=== PATIENT | male | born 1940 | race Caucasian/White ===

== ENCOUNTER 2017-03-19 08:47 | Inpatient (IN) | payer MEDICARE, OTHER ==
[~2017-03-19] VITALS: Ht 188 cm; Wt 86.4 kg
[~2017-03-19 08:47] MED LIST: ALBU8.5H5 IH; AMIO200T46 PO; CALC-176 PO; CARSR60 PO; CITA10TA84 PO; CYAN100 PO; LORA0.5T PO; METO-429 PO; OMEG100011 PO; OMEP20CA16 PO; RIVA15TA PO; SYMB80120 INH
[2017-03-19] MEDS ORDERED: ALBUTEROL 0.5% (NEB) 2.5 MG/0.5 ML AMP INH STA (08:52)
[2017-03-19] MEDS ORDERED: IPRATROPIUM (NEB) 0.5 MG/2.5 ML AMP INH STA (08:52)
[2017-03-19] MEDS ORDERED: METHYLPREDNISOLONE 125 MG INJ IV STA (08:52)
[2017-03-19 08:54] VITALS: Ht 188 cm; Wt 86.4 kg
[2017-03-19 09:03] LABS: ADD SCAN DIFF NO
--- NOTE | 2017-03-19 09:03 | ERA ---
ER Documentation Chief Complaint Date/Time DATE: 03/19/17 TIME: 09:01 Chief Complaint sob x today ROS All systems reviewed and are negative except as per history of present illness. Medications Home Meds Reported Medications Tiotropium [place]* (Spiriva*) 18 Mcg Cap.w.dev, 1 CAP INHALATION DAILY, #30 CAP 03/19/17 Simvastatin* (Zocor*) 10 Mg Tablet, 10 MG PO QHS, #30 TAB 03/19/17 Fluocinonide* (Fluocinonide* Oint) 0.05%-60 Gm Oint..gm., 1 APPLIC TOP BID, EA 03/19/17 Furosemide* (Lasix*) 20 Mg Tablet, 20 MG PO DAILY, TAB 03/19/17 Hydroxyzine Hcl* (Hydroxyzine Hcl*) 10 Mg Tablet, 10 MG PO QHS Y for SLEEP, #30 TAB MAY TAKE UP TO 5 TABLETS AT BEDTIME DIRECTED NEEDED 03/19/17 Ciclopirox (CICLODAN) 6.6 Ml Solution, 6.6 ML TP DAILY TO AFFECTED NAILS REMOVE WITH ALCOHOL EVERY 7 DAYS 03/19/17 Budesonide-Formoterol Fumarate* (Symbicort*) 160-4.5 Hfa.aer.ad, 2 PUFF INHALATION BID, #1 EACH 03/19/17 Atenolol* (Atenolol*) 100 Mg Tablet, 100 MG PO DAILY, #30 TAB 03/19/17 Apixaban* (Eliquis*) 5 Mg Tablet, 5 MG PO BID, TAB 03/19/17 Albuterol Sulfate* (Albuterol Sulfate* HFA) 8.5 Gm Hfa.aer.ad, 2 PUFF IH Q4H Y for WHEEZING AND SOB, EA 12/24/14 Omeprazole* (Omeprazole*) 20 Mg Capsule.dr, 20 MG PO DAILY, CAP 12/24/14 Cyanocobalamin* (Vitamin B12*) 100 Mcg Tab, 100 MCG PO DAILY, TAB 12/24/14 Discontinued Reported Medications Budesonide-Formoterol Fumarate* (Symbicort*) 80-4.5 Inha, 1 PUFF INH BID, INH 12/24/14 Citalopram Hydrobromide* (Citalopram Hydrobromide*) 10 Mg Tablet, 10 MG PO DAILY , TAB 12/24/14 Lorazepam* (Lorazepam*) 0.5 Mg Tablet, 0.5 MG PO HS Y for ANXIETY, TAB 12/24/14 [place]-3 Fatty Acids/Fish Oil* (Fish Oil *) 1,000 Mg Capsule, 1000 MG PO DAILY, CAP 12/24/14 Calcium Cmb 2-Mag Cmb 12-Vit D3 (Calcium 500) 1 Each Tablet, 1 TAB PO DAILY, TAB 12/24/14 Discontinued Scripts Diltiazem Hcl* (Cardizem SR*) 60 Mg Capsr, 60 MG PO BID, #60 3 Refills Prov:JOHNSON MATOS 12/28/14 Rivaroxaban* (Xarelto*) 15 Mg Tablet, 15 MG PO WITH DINNER, #30 3 Refills Prov:JOHNSON MATOS 12/26/14 Metoprolol Tartrate* (Lopressor*) 50 Mg Tab, 50 MG PO BID, #60 TAB 3 Refills Prov:SHAWNAJOHNSON 12/26/14 Amiodarone Hcl* (Cordarone*) 200 Mg Tab, 200 MG PO DAILY, #60 TAB 3 Refills Prov:JOHNSON MATOS 12/26/14 Allergies Allergies: Coded Allergies: No Known Allergy (Unverified , 03/19/17) PMhx/Soc History of Surgery: Yes (reattach mallelous ,archiles tendon, hernia repair x2 , reconstruced face) Anesthesia Reaction: No Hx Neurological Disorder: No Hx Respiratory Disorders: Yes (COPD) Hx Cardiac Disorders: No Hx Psychiatric Problems: Yes (anxiety attack) Hx Alcohol Use: No Hx Substance Use: No Hx Tobacco Use: Yes (1/2 pack/ day) Smoking Status: Current every day smoker Physical Exam Vitals Vital Signs Date Time Temp Pulse Resp B/P Pulse Ox O2 Delivery O2 Flow Rate FiO2 03/19/17 12:42 97.6 111 15 127/77 100 Nasal Cannula 2.0 03/19/17 11:00 135 18 145/90 100 Nasal Cannula 2.0 03/19/17 09:33 128 18 97 21 03/19/17 09:12 109 20 104/69 100 Mask 10.0 03/19/17 09:10 Nasal Cannula 2 03/19/17 08:58 Nasal Cannula 2.0 03/19/17 08:54 98.6 169 22 169/112 100 Physical Exam Const: [] Head: Atraumatic Eyes: Normal Conjunctiva ENT: Normal External Ears, Nose and Mouth. Neck: Full range of motion..~ No meningismus. Resp: Clear to auscultation bilaterally Cardio: Regular rate and rhythm, no murmurs Abd: Soft, non tender, non distended. Normal bowel sounds Skin: No petechiae or rashes Back: No midline or flank tenderness Ext: No cyanosis, or edema Neur: Awake and alert Psych: Normal Mood and Affect Result Diagram: 03/19/17 0900 03/19/17 0900 Results 24 hrs Laboratory Tests Test 03/19/17 09:00 03/19/17 10:00 White Blood Count 10.010^3/ul Red Blood Count 4.5110^6/ul Hemoglobin 16.3g/dl Hematocrit 47.1% Mean Corpuscular Volume 104.4fl Mean Corpuscular Hemoglobin 36.1pg Mean Corpuscular Hemoglobin Concent 34.6g/dl Red Cell Distribution Width 15.9% Platelet Count 58999^3/UL Mean Platelet Volume 10.1fl Neutrophils % 58.4% Lymphocytes % 28.1% Monocytes % 10.4% Eosinophils % 2.2% Basophils % 0.4% Nucleated Red Blood Cells % 0.0/100WBC Neutrophils # 5.910^3/ul Lymphocytes # 2.810^3/ul Monocytes # 1.010^3/ul Eosinophils # 0.210^3/ul Basophils # 0.010^3/ul Nucleated Red Blood Cells # 0.010^3/ul Sodium Level 134mmol/L Potassium Level 3.6mmol/L Chloride Level 96mmol/L Carbon Dioxide Level 23mmol/L Anion Gap 19 Blood Urea Nitrogen 15mg/dl Creatinine 1.05mg/dl Glucose Level 124mg/dl Calcium Level 10.2mg/dl Total Bilirubin 2.0mg/dl Direct Bilirubin 0.00mg/dl Indirect Bilirubin 2.0mg/dl Aspartate Amino Transf (AST/SGOT) 45IU/L Alanine Aminotransferase (ALT/SGPT) 53IU/L Alkaline Phosphatase 132IU/L Troponin I 0.020ng/ml Total Protein 8.1g/dl Albumin 4.3g/dl Globulin 3.80g/dl Albumin/Globulin Ratio 1.13 Thyroid Stimulating Hormone (TSH) 6.420MIU/L Magnesium Level 1.1mg/dl Current Medications Medications (Trade) Dose Ordered Sig/Mya Route PRN Reason Start Time Stop Time Status Last Admin Dose Admin Albuterol (Proventil 0.5% (Neb)) 15 mg ONCE STAT INH 03/19/17 08:52 03/19/17 08:56 DC 03/19/17 09:10 Ipratropium [place] (Atrovent 0.02% (Neb)) 1 mg ONCE STAT INH 03/19/17 08:52 03/19/17 08:56 DC 03/19/17 09:10 Methylprednisolone Sodium Succinate (Solu-Medrol) 125 mg ONCE STAT IV 03/19/17 08:52 03/19/17 08:56 DC 03/19/17 09:11 Diltiazem HCl (Cardizem Iv) 20 mg ONCE ONCE IV 03/19/17 09:30 03/19/17 09:31 DC 03/19/17 09:11 Diltiazem HCl 20 mg 20 mg ONCE ONCE IV 03/19/17 10:30 03/19/17 10:31 DC 03/19/17 10:31 Diltiazem HCl (Cardizem-D5W 125 Mg/125 ml Drip) 125 ml @ 5 mls/hr TITRATE IV 03/19/17 11:00 03/19/17 11:11 Ondansetron HCl (Zofran Inj) 4 mg ER BRIDGE PRN IV NAUSEA AND/OR VOMITING 03/19/17 12:00 03/20/17 11:59 Acetaminophen (Tylenol Tab) 650 mg ER BRIDGE PRN PO MILD PAIN/FEVER 03/19/17 12:00 03/20/17 11:59 RHYTHM STRIP INTERPRETATION: Time: 10:00. Post Cardizem, atrial fibrillation ventricular rate down to 105 but again michelle to 140. Indication: Tachycardia. EKG: TIME: 09:00. Atrial fibrillation with RVR at a rate of 169. Occasional PVCs. No acute ST segment elevation or depression. EP Interpretation: Abnormal EKG. IMAGING: PROCEDURE: XR Chest. CLINICAL INDICATION: Asthma exacerbation. TECHNIQUE: PA and Lateral views of the chest were obtained. COMPARISON: Chest x-ray 09/14/2015. FINDINGS: The soft tissues are normal. There are degenerative osteophytes in the thoracic and upper lumbar spine. The heart is enlarged. The cardiomediastinal silhouette and hilar structures are normal. The pulmonary vasculature is normal. There are faster calcifications in the aortic arch. There is pleural scarring adjacent to the right diaphragm. The left diaphragm is mildly elevated. No acute infiltrate is identified. There is reticular scarring in the right lower lobe with pulmonary hyperinflation. The costophrenic angles are normal. There are tubing artifacts obscuring portions of the right upper lobe. This represents a limitation of the study. Monitoring electrodes are draped across the chest. IMPRESSION: 1. Cardiomegaly. 2. COPD. 3. Atherosclerosis and ectasia of the thoracic aorta. 4. Increased density in the medial aspect of the right upper lobe may be the result of atelectasis. Evaluation in this area is limited by superimposed tubing artifacts. RPTAT:AAJJ Physician Que Date Time Electronically viewed and signed by Physician Que on 03/19/2017 09:59 JM/ Procedures/MDM DOCUMENTS REVIEWED: ED nurse[, EMS, [facility] care, Prior ED, Prior records, Dialysis, Clinic notes, Physician referral] PROCEDURES: [] ED COURSE: [] REEXAMINATION/REEVALUATION: Time:[] MEDICAL DECISION MAKING: [] Counseled [patient and family] regarding diagnosis, diagnostic results and plan for admission. CALLS/CONSULTS: Time[Dr. Marika [], Recommends []. PATIENT CARE TRANSITIONED: Time: []Dr. []. Departure Diagnosis: Primary Impression: Atrial fibrillation with rapid ventricular response Additional Impressions: COPD exacerbation Contusion of left knee Qualified Code: S80.02XA - Contusion of left knee, initial encounter Essential hypertension Nicotine abuse Condition: Serious ROSALIO MCNEIL MD March 19, 2017 09:03
[2017-03-19 09:11] LABS: BASOPHILS % 0.4 % (0.0-2.0); EOSINOPHILS # 0.2 10^3/ul (0.0-0.5); EOSINOPHILS % 2.2 % (0.0-7.0); HEMATOCRIT 47.1 % (42.0-52.0); HEMOGLOBIN 16.3 g/dl (14.0-18.0); LYMPHOCYTES # 2.8 10^3/ul (0.8-2.9); LYMPHOCYTES % 28.1 % (15.0-51.0); MEAN CORPUSCULAR HEMOGLOBIN 36.1 pg (29.0-33.0); MEAN CORPUSCULAR HGB CONC 34.6 g/dl (32.0-37.0); MEAN CORPUSCULAR VOLUME 104.4 fl (82.0-101.0); MEAN PLATELET VOLUME 10.1 fl (7.4-10.4); MONOCYTES % 10.4 % (0.0-11.0); NEUTROPHIL # 5.9 10^3/ul (1.6-7.5); NEUTROPHILS % 58.4 % (39.0-77.0); PLATELET COUNT 244 10^3/UL (140-415); RED BLOOD COUNT 4.51 10^6/ul (4.70-6.10); RED CELL DISTRIBUTION WIDTH 15.9 % (11.5-14.5)
[2017-03-19] MEDS ORDERED: DILTIAZEM 25 MG INJ IV ONE ×2 (09:30→10:30)
--- NOTE | 2017-03-19 09:51 | RADRPT ---
PROCEDURE: Left knee x-ray CLINICAL INDICATION: Status post fall. TECHNIQUE: AP, lateral, sunrise and oblique views of the knee were obtained. COMPARISON: None FINDINGS: There is chondrocalcinosis involving the medial lateral menisci. There is a joint space effusion. There is an enthesiophyte at the insertion site of the quadriceps tendon to the patella. There is a spur off of the lateral femoral condyle. There is a spur off the lateral tibial condyle. IMPRESSION: 1. Chondrocalcinosis with osteoarthritis involving the left knee. The joint space effusion is note d. RPTAT:AAJJ Physician Que Date Time Electronically viewed and signed by Physician Que on 03/19/2017 09:51 BLAS/
[2017-03-19 09:56] LABS: CALCIUM 10.2 mg/dl (8.4-10.2); CREATININE 1.05 mg/dl (0.61-1.24); POTASSIUM 3.6 mmol/L (3.5-5.1); TOTAL PROTEIN 8.1 g/dl (6.1-8.1)
--- NOTE | 2017-03-19 09:59 | RADRPT ---
PROCEDURE: XR Chest. CLINICAL INDICATION: Asthma exacerbation. TECHNIQUE: PA and Lateral views of the chest were obtained. COMPARISON: Chest x-ray 09/14/2015. FINDINGS: The soft tissues are normal. There are degenerative osteophytes in the thoracic and upper lumbar sp ine. The heart is enlarged. The cardiomediastinal silhouette and hilar structures are normal. The pulmonary vasculature is normal. There are faster calcifications in the aortic arch. There is pleura l scarring adjacent to the right diaphragm. The left diaphragm is mildly elevated. No acute infilt rate is identified. There is reticular scarring in the right lower lobe with pulmonary hyperinflati on. The costophrenic angles are normal. There are tubing artifacts obscuring portions of the right upper lobe. This represents a limitation of the study. Monitoring electrodes are draped across th e chest. IMPRESSION: 1. Cardiomegaly. 2. COPD. 3. Atherosclerosis and ectasia of the thoracic aorta. 4. Increased density in the medial aspect of the right upper lobe may be the result of atelectasis. Evaluation in this area is limited by superimposed tubing artifacts. RPTAT:AAJJ Physician Que Date Time Electronically viewed and signed by Physician Que on 03/19/2017 09:59 BLAS/
[2017-03-19 10:08] LABS: TROPONIN-I 0.02 ng/ml (0.00-0.12)
[2017-03-19 10:42] LABS: ALBUMIN 4.3 g/dl (3.3-4.9); ALBUMIN/GLOBULIN RATIO 1.13
[2017-03-19] MEDS ORDERED: DILTIAZEM-D5W 125MG/125ML DRIP 125 ML IV SCH (11:00)
[2017-03-19] MEDS ORDERED: APIX5TAB PO (11:19)
[2017-03-19] MEDS ORDERED: ATEN100T PO (11:19)
[2017-03-19] MEDS ORDERED: BUDE6HFA INHALATION (11:20)
[2017-03-19] MEDS ORDERED: CICL6.6S8 TP (11:22)
[2017-03-19] MEDS ORDERED: HYDR-3010 PO (11:24)
[2017-03-19] MEDS ORDERED: FURO-110 PO (11:24)
[2017-03-19] MEDS ORDERED: FLUO60OI5 TOP (11:25)
[2017-03-19] MEDS ORDERED: SIMV10TA PO (11:26)
[2017-03-19] MEDS ORDERED: TIOT18CA INHALATION (11:26)
[2017-03-19] MEDS ORDERED: ONDANSETRON 4 MG INJ IV PRN ×2 (12:00→13:00)
[2017-03-19] MEDS ORDERED: ACETAMINOPHEN 325 MG TAB PO PRN ×2 (12:00→13:00)
[2017-03-19 12:42] VITALS: TEMP 97.6
[2017-03-19] MEDS ORDERED: BISACODYL (EC) 5 MG TAB PO PRN (13:00)
[2017-03-19] MEDS ORDERED: NACL 0.9% 3 ML SYG IV SCH (13:00)
[2017-03-19] MEDS ORDERED: MAGNESIUM HYDROXIDE 30ML CUP PO PRN (13:00)
[2017-03-19] MEDS ORDERED: morphine 2 MG INJ IV PRN (13:00)
[2017-03-19] MEDS ORDERED: LORAZEPAM 2 MG INJ IV PRN ×2 (13:00→15:30)
[2017-03-19] MEDS ORDERED: HYDROCODONE/APAP (5/325) TAB PO PRN (13:00)
[2017-03-19 13:15] VITALS: BP 132/68; PULSE 105; RESP 18
[2017-03-19] MEDS ORDERED: MAGNESIUM SULFATE 4 GM/100 ML 100 ML IVPB ONE (13:30)
--- NOTE | 2017-03-19 13:41 | CONS ---
Date/Time of Note Date/Time of Note DATE: 03/19/17 TIME: 13:33 Assessment/Plan Assessment/Plan Additional Assessment/Plan Mechanical fall with knee trauma Atrial fibrillation with rapid ventricular rates COPD with active tobacco use Preserved ejection fraction Hypertension Mitral and tricuspid valve regurgitation -Elevated heart rates likely secondary to pain and COPD with anxiety. Currently on IV Cardizem. Will start Lopressor 50 mg p.o. twice a day with goal of maintaining heart rate less than 110 with titrating off IV Cardizem as possible. Patient with magnesium level which is severely low, magnesium supplementation as already been ordered. Recommend adequate pain control as well as anxiety. Consultation Date/Type/Reason Admit Date/Time Type of Consultation: cv Reason for Consultation Atrial fibrillation with rapid ventricular rates Hx of Present Illness This is a 76-year-old male with past medical history of atrial fibrillation with rapid ventricular rates, COPD with active tobacco use, arthritis had a mechanical fall last night. Patient tripped on his walker. He hurt his left knee had severe pain. Because of the pain, he became more short of breath and anxious. Symptoms continue to progress and worsen this morning so he came to the emergency room. He denies any palpitations, chest pain, dizziness. Shortness of breath has improved. He denies any wheezing, cough, fevers or chills. His main complaint is his left knee pain. 12 point review of systems was performed with all pertinent positives and negatives mentioned above and all else is negative Past Medical History COPD Atrial fibrillation Arthritis Medical History: hypertension Past Surgical History Hernia repair, orthopedic surgery Family History Significant Family History: no pertinent family hx Social History Alcohol Use: other (4-5 alcoholic beverages every other day) Smoking Status: Current every day smoker Drug Use: none Other Social History Lives at home by himself Exam/Review of Systems Vital Signs Vitals Vital Signs Date Time Temp Pulse Resp B/P Pulse Ox O2 Delivery O2 Flow Rate FiO2 03/19/17 12:42 97.6 111 15 127/77 100 Nasal Cannula 2.0 03/19/17 09:33 21 Exam No apparent distress Constitutional: alert, obese, oriented Head: normocephalic Neck: supple Respiratory: other (Coarse breath sounds bilaterally, minimal NX Tory wheezing , no rhonchi) Cardiovascular: irregular rhythm, other (S1-S2 heard) Gastrointestinal: bowel sounds, non-tender, soft Extremities: edema Results Result Diagram: 03/19/17 0900 03/19/17 0900 Results 24 hrs Laboratory Tests Test 03/19/17 09:00 03/19/17 10:00 White Blood Count 10.0 # Red Blood Count 4.51 L Hemoglobin 16.3 Hematocrit 47.1 Mean Corpuscular Volume 104.4 H Mean Corpuscular Hemoglobin 36.1 H Mean Corpuscular Hemoglobin Concent 34.6 Red Cell Distribution Width 15.9 H Platelet Count 244 Mean Platelet Volume 10.1 # Neutrophils % 58.4 Lymphocytes % 28.1 Monocytes % 10.4 Eosinophils % 2.2 Basophils % 0.4 Nucleated Red Blood Cells % 0.0 Neutrophils # 5.9 Lymphocytes # 2.8 Monocytes # 1.0 H Eosinophils # 0.2 Basophils # 0.0 Nucleated Red Blood Cells # 0.0 Sodium Level 134 L Potassium Level 3.6 Chloride Level 96 L Carbon Dioxide Level 23 Anion Gap 19 H Blood Urea Nitrogen 15 Creatinine 1.05 Glucose Level 124 Calcium Level 10.2 Total Bilirubin 2.0 H Direct Bilirubin 0.00 Indirect Bilirubin 2.0 H Aspartate Amino Transf (AST/SGOT) 45 Alanine Aminotransferase (ALT/SGPT) 53 Alkaline Phosphatase 132 H Troponin I 0.020 Total Protein 8.1 Albumin 4.3 Globulin 3.80 H Albumin/Globulin Ratio 1.13 Thyroid Stimulating Hormone (TSH) 6.420 H Magnesium Level 1.1 L Medications Medications Current Medications Diltiazem HCl (Cardizem-D5W 125 Mg/125 ml Drip) 125 ml @ 5 mls/hr TITRATE IV Last administered on 03/19/17t 11:11; Admin Dose 5 MLS/HR; Start 03/19/17 at 11:00 Lorazepam (Ativan) 0.5 mg Q6H PRN IV ANXIETY; Start 03/19/17 at 13:00; Status UNV Ondansetron HCl (Zofran Inj) 4 mg Q6H PRN IV NAUSEA AND/OR VOMITING; Start 03/19 at 13:00; Status UNV Acetaminophen (Tylenol Tab) 650 mg Q6H PRN PO PAIN LEVEL 1-3 OR FEVER; Start at 13:00; Status UNV Acetaminophen/ Hydrocodone Bitart ([place] (5/325)) 1 tab Q6H PRN PO PAIN LEVEL 4 -6; Start 03/19/17 at 13:00; Status UNV Morphine Sulfate (morphine) 2 mg Q4H PRN IV PAIN LEVEL 7-10; Start 03/19/17 at 13:00; Status UNV Magnesium Hydroxide (Milk Of Mag) 30 ml DAILY PRN PO CONSTIPATION; Start at 13:00; Status UNV Bisacodyl (Dulcolax) 5 mg DAILY PRN PO CONSTIPATION; Start 03/19/17 at 13:00; Status UNV Famotidine (Pepcid) 20 mg Q12 PO ; Start 03/19/17 at 21:00; Status UNV Apixaban (Eliquis) 5 mg BID PO ; Start 03/19/17 at 21:00; Status UNV Atenolol (Tenormin) 100 mg DAILY PO ; Start 03/20/17 at 09:00; Status UNV Cyanocobalamin (Vitamin B12) 100 mcg DAILY PO ; Start 03/20/17 at 09:00; Status UNV Furosemide (Lasix) 20 mg DAILY PO ; Start 03/20/17 at 09:00; Status UNV Miscellaneous Information 2 puff BID INHALATION ; Start 03/19/17 at 21:00; Status UNV Miscellaneous Information 10 mg QHS PO ; Start 03/19/17 at 21:00; Status UNV Tiotropium [place] 1 inh 1 inh DAILY INH ; Start 03/20/17 at 09:00; Status UNV Magnesium Sulfate (Magnesium Sulfate 4 Gm/100 ml) 100 ml @ 25 mls/hr ONCE ONCE IVPB ; Start 03/19/17 at 13:30; Stop 03/19/17 at 17:29; Status UNV Procedures Procedures ECG with atrial fibrillation with ventricular rate of 169, QRS 70 ms, nonspecific STT wave abnormalities Arturo Wesley DO March 19, 2017 13:41
[2017-03-19] MEDS: METOPROLOL 50 MG TAB PO SCH ×2 (14:26→20:50)
[2017-03-19] MEDS: LEVALBUTEROL (NEB) 0.31 MG/3 ML AMP HHN SCH ×2 (14:32→21:13)
[2017-03-19 15:35] LABS: INR 1.23; PARTIAL THROMBOPLASTIN TIME 34.3 Sec (25.0-35.0); PROTIME 15.6 Sec (12.2-14.2); PT RATIO 1.2
[2017-03-19 15:40] LABS: CREATINE KINASE 114 IU/L (23-200)
[2017-03-19 15:52] LABS: CK-MB 6.21 ng/ml (0.0-2.4); TROPONIN-I < 0.012 ng/ml (0.00-0.12)
[2017-03-19 16:20] VITALS: PULSE 75
--- NOTE | 2017-03-19 16:36 | HP ---
DATE OF ADMISSION: 03/19/2017 TIME OF EVALUATION: 12:30 p.m. REASON FOR ADMISSION: Shortness of breath, status post mechanical fall with left knee pain. CONSULTANTS: Dr. Arturo Wesley, cCardiology. HISTORY OF PRESENT ILLNESS: This is a 76-year-old male with past medical history of essential hypertension, COPD, atrial fibrillation on Eliquis and nicotine use, who came to the emergency room because of significant dyspnea as well as a mechanical fall at home with resultant left knee injury. The patient denied any fevers. The patient denied any cough. He denied any chest pain. The patient denied any nausea, vomiting, abdominal pain, diarrhea, hematochezia, dysuria or hematuria. In the emergency room, the patient was noticed to be in atrial fibrillation with rapid ventricular response. Consequently, the patient was started on Cardizem drip. The patient's chest x-ray showed cardiomegaly and COPD. The patient underwent a left knee x-ray that showed chondrocalcinosis with osteoarthritis involving the left knee. The patient's initial set of troponins were negative. The patient was also noticed to have severe hypomagnesemia with a magnesium level of 1.1. PAST MEDICAL HISTORY: Essential hypertension, COPD, atrial fibrillation, nicotine use. PAST SURGICAL HISTORY: Left ankle surgery, right face reconstruction, bilateral inguinal hernia repair, skin cancer excision. HOME MEDICATIONS: 1. Albuterol 8.5 gram inhaled 2 puffs q.4 h. p.r.n. wheezing. 2. Spiriva 1 capsule inhalation daily. 3. Eliquis 5 mg p.o. b.i.d. 4. Atenolol 100 mg p.o. daily. 5. Simvastatin 10 mg p.o. at bedtime. 6. Lasix 20 mg p.o. daily. 7. Symbicort b.i.d. P2 puffs inhaled b.i.d. 8. Omeprazole 25 mg p.o. daily. 9. Vitamin B12 100 mcg p.o. daily. ALLERGIES: NO KNOWN DRUG ALLERGIES. SOCIAL HISTORY: The patient lives at home with his partner. The patient is a current everyday tobacco user. The patient also drinks hard liquor every other day. The patient is currently not working. REVIEW OF SYSTEMS: A 12-point review negative other than what is mentioned in history of present illness. PHYSICAL EXAMINATION: VITAL SIGNS: Temperature 97.6, pulse rate 111, respiratory rate 15, blood pressure 127/77, oxygen saturation 100% on low flow O2. GENERAL: This is a 76-year-old male lying in bed in no apparent distress. HEENT: Head normocephalic and atraumatic. Eyes: Anicteric sclerae. Conjunctivae clear. ENT: Nasal septum is midline. Oral mucosa is dry. NECK: Supple. No JVD noticed. RESPIRATORY: Bilaterally diminished breath sounds. Minimal use of accessory muscles of respiration. No wheezing. CARDIAC: Irregularly irregular rhythm. ABDOMEN: Scaphoid, soft, nontender, bowel sounds positive in all 4 quadrants. GENITOURINARY: Deferred. EXTREMITIES: No cyanosis. Clubbing of upper digits. No edema. Peripheral pulses palpable. Left knee tenderness upon palpation. The left knee warmth. NEUROLOGIC: The patient is awake, alert and oriented. Cranial nerves are grossly intact. LABORATORY AND DIAGNOSTIC DATA: WBC 10.0, hemoglobin 16.3, hematocrit 47.1, platelet count 244. Sodium 134, potassium 3.6, chloride 96, carbon dioxide 23, anion gap 19, BUN 15, creatinine 1.05, glucose 124, calcium 10.2, magnesium 1.1. Total bilirubin 2.0, AST 45, ALT 53, alkaline phosphatase 132. Troponin I 0.020, TSH is 6.420. Chest x-ray, cardiomegaly pulmonary disease. Atherosclerosis and ectasia of the thoracic aorta. Increased density in the medial aspect of the right upper lobe and the result of atelectasis. IMPRESSION: A 76-year-old male with past medical history of essential hypertension, COPD and atrial fibrillation who came to the emergency room with chief complaint of dyspnea who was found to have atrial fibrillation with rapid ventricular response who will be admitted here for further treatment and evaluation. ASSESSMENT AND PLAN: 1. Atrial fibrillation with rapid ventricular response. Continue the patient on Cardizem drip. Continue anticoagulation for stroke prophylaxis with Eliquis. Cardiology to evaluate the patient. 2. Status post mechanical fall with left knee pain. The patient's left knee x- ray showing chondrocalcinosis with osteoarthritis involved in the left knee. The patient will be provided with adequate pain control. 3. Essential hypertension. The patient will be maintained on antihypertensives including p.r.n. antihypertensives for any systolic blood pressure readings greater than 160 mmHg. 4. Nicotine use. The patient continues to use nicotine. Nicotine cessation will be recommended. 6. Alcohol abuse. The patient is a regular alcohol abuser. The patient will be maintained on precautions to avoid any alcohol withdrawal, delirium. 7. Hypomagnesemia. The patient's magnesium will be repleted. Plan. The patient will be admitted to inpatient telemetry floor. The patient will be started on a low cholesterol diet. The patient will be started on DVT prophylaxis and gastrointestinal prophylaxis. The patient's activities will be as tolerated. The rest of the patient's management will be based on the clinical course, the results of diagnostic studies, and inputs from consultants. Based on the patient's clinical presentation, he most probably requires at least 2 midnights' stay for further management and evaluation of his clinical presentation. The case and management of this patient was fully discussed with Dr. Eddy. FABRICE EDDY MD, AM/DREW Conf#: [id number] DID#: [id number] MEGHANN
[2017-03-19 16:49] VITALS: BP 141/67; RESP 18
[2017-03-19 19:50] VITALS: BP 141/82; RESP 21
[2017-03-19 20:15] VITALS: PULSE 74
[2017-03-19] MEDS: FAMOTIDINE 20 MG TAB PO SCH (20:50)
[2017-03-19] MEDS: CHLORDIAZEPOXIDE 25 MG CAP PO SCH (20:50)
[2017-03-19] MEDS: APIXABAN 5 MG TABLET PO SCH (20:50)
[2017-03-19] MEDS: ATORVASTATIN 10 MG TAB PO SCH (20:50)
[2017-03-19] MEDS: SALMETEROL/FLUTICASONE 250/50 INHA INH SCH (22:15)
[2017-03-20] VITALS (12 sets, daily range): BP systolic 98–122; BP diastolic 60–77; PULSE 80–98; RESP 18–20
[2017-03-20] MEDS: LEVALBUTEROL (NEB) 0.31 MG/3 ML AMP HHN SCH ×4 (01:45→20:04)
[2017-03-20 07:18] LABS: ADD SCAN DIFF NO
[2017-03-20 07:22] LABS: BASOPHILS % 0.1 % (0.0-2.0); HEMATOCRIT 37.9 % (42.0-52.0); HEMOGLOBIN 12.9 g/dl (14.0-18.0); LYMPHOCYTES # 0.7 10^3/ul (0.8-2.9); LYMPHOCYTES % 5.8 % (15.0-51.0); MEAN CORPUSCULAR HEMOGLOBIN 35.9 pg (29.0-33.0); MEAN CORPUSCULAR VOLUME 105.6 fl (82.0-101.0); MEAN PLATELET VOLUME 11.2 fl (7.4-10.4); MONOCYTE # 0.6 10^3/ul (0.3-0.9); MONOCYTES % 5.2 % (0.0-11.0); NEUTROPHIL # 10.1 10^3/ul (1.6-7.5); PLATELET COUNT 178 10^3/UL (140-415); RED BLOOD COUNT 3.59 10^6/ul (4.70-6.10); RED CELL DISTRIBUTION WIDTH 15.8 % (11.5-14.5); WHITE BLOOD COUNT 11.5 10^3/ul (4.8-10.8)
[2017-03-20 07:37] LABS: POTASSIUM 3.8 mmol/L (3.5-5.1)
[2017-03-20 07:39] LABS: ALBUMIN/GLOBULIN RATIO 0.96; CREATININE 0.98 mg/dl (0.61-1.24); TOTAL PROTEIN 6.1 g/dl (6.1-8.1)
[2017-03-20 07:40] LABS: CALCIUM 9.1 mg/dl (8.4-10.2)
[2017-03-20 07:50] LABS: PHOSPHORUS 3.1 mg/dl (2.5-4.9)
[2017-03-20 07:54] LABS: TROPONIN-I 0.022 ng/ml (0.00-0.12)
[2017-03-20 07:58] LABS: T3 UPTAKE 46.4 % (23.5-40.5)
[2017-03-20] MEDS: TIOTROPIUM 18 MCG CAPSULE INHA DEV INH SCH (09:00)
[2017-03-20] MEDS ORDERED: ENOXAPARIN 40 MG/0.4 ML SYG SC SCH (09:00)
[2017-03-20] MEDS ORDERED: ASPIRIN 81 MG TAB PO SCH (09:00)
[2017-03-20] MEDS ORDERED: ATENOLOL 100 MG TAB PO SCH (09:00)
[2017-03-20] MEDS: SALMETEROL/FLUTICASONE 250/50 INHA INH SCH ×2 (09:30→21:03)
[2017-03-20] MEDS: APIXABAN 5 MG TABLET PO SCH ×2 (09:30→21:04)
[2017-03-20] MEDS: FAMOTIDINE 20 MG TAB PO SCH ×2 (09:30→21:04)
[2017-03-20] MEDS: FUROSEMIDE 20 MG TAB PO SCH (09:30)
[2017-03-20] MEDS: CHLORDIAZEPOXIDE 25 MG CAP PO SCH ×3 (09:30→21:04)
[2017-03-20] MEDS: METOPROLOL 50 MG TAB PO SCH ×2 (09:31→21:00)
[2017-03-20] MEDS: CYANOCOBALAMIN 100 MCG TAB PO SCH (09:31)
[2017-03-20 09:54] LABS: IRON 31 ug/dl (35-150)
--- NOTE | 2017-03-20 09:55 | PN ---
Date/Time of Note Date/Time of Note DATE: 03/20/17 TIME: 09:49 Assessment/Plan VTE Prophylaxis VTE Prophylaxis Intervention: SCD's Lines/Catheters IV [facility]ter Type (from [facility]): Saline Lock Assessment/Plan Chief Complaint/Hosp Course Assessment and plan 1. Atrial fibrillation with rapid ventricular response. Patient status post Cardizem drip. Continue on beta-александр. Appears stable at present. Continue with cardiology recommendations 2. Status post mechanical fall with left knee pain. Patient did have a left knee x-ray showing chondrocalcinosis with osteoporosis. No fracture seen. Continue with analgesics. Physical therapy to follow . 3. Essential hypertension. Continue antihypertensives and adjust as needed. Stable at present. 4. History of COPD. Patient with noted chronic cigarette smoking. Cessation advised. 5. History of alcohol abuse. Monitor neuro status. Cessation advised. 6. Hypomagnesemia. Improved at present. Monitor level and replete as needed Disposition and plan: Continue with follow-up with cardiology recommendations. Physical therapy to follow. Discharged in medically stable and cleared by consultants Discussed plan of care with Dr. Griffith Problems: Subjective 24 Hr Interval Summary Free Text/Dictation No acute distress seen at this time. Still reports having some left knee pain from his previous fall. Exam/Review of Systems Vital Signs Vitals Vital Signs Date Time Temp Pulse Resp B/P Pulse Ox O2 Delivery O2 Flow Rate FiO2 03/20/17 08:07 98.0 91 20 122/60 99 03/20/17 02:50 3.0 03/20/17 01:46 Nasal Cannula 03/19/17 09:33 21 Intake and Output 03/19/17 03/19/17 03/20/17 15:00 23:00 07:00 Intake Total 250 ml 800 ml Output Total 300 ml 550 ml Balance -50 ml 250 ml Exam Constitutional: alert, oriented Psych: nl mood/affect Head: normocephalic Neck: supple, No jvd Respiratory: diminished breath sounds Gastrointestinal: non-tender, soft Musculoskeletal: swelling (Minimal left lower extremity +1) Neurological: ACID FILLER II-XII intact, nl mental status, nl speech Results Result Diagram: 03/20/17 0550 03/20/17 0550 Results 24 hrs Laboratory Tests Test 03/19/17 10:00 03/19/17 15:09 03/20/17 05:50 Magnesium Level 1.1 L 2.0 Prothrombin Time 15.6 H Prothrombin Time Ratio 1.2 INR International Normalized Ratio 1.23 Activated Partial Thromboplast Time 34.3 Hemoglobin A1c 5.3 Creatine Kinase 114 Creatine Kinase Index 5.4 Creatinine Kinase MB (Mass) 6.21 H Troponin I < 0.012 0.022 White Blood Count 11.5 H Red Blood Count 3.59 #L Hemoglobin 12.9 #L Hematocrit 37.9 L Mean Corpuscular Volume 105.6 H Mean Corpuscular Hemoglobin 35.9 H Mean Corpuscular Hemoglobin Concent 34.0 Red Cell Distribution Width 15.8 H Platelet Count 178 # Mean Platelet Volume 11.2 H Neutrophils % 88.0 H Lymphocytes % 5.8 L Monocytes % 5.2 Eosinophils % 0.0 Basophils % 0.1 Nucleated Red Blood Cells % 0.0 Neutrophils # 10.1 H Lymphocytes # 0.7 L Monocytes # 0.6 Eosinophils # 0.0 Basophils # 0.0 Nucleated Red Blood Cells # 0.0 Sodium Level 134 L Potassium Level 3.8 Chloride Level 97 Carbon Dioxide Level 27 Anion Gap 14 Blood Urea Nitrogen 24 H Creatinine 0.98 Glucose Level 135 Calcium Level 9.1 Phosphorus Level 3.1 Total Bilirubin 1.0 Direct Bilirubin 0.00 Indirect Bilirubin 1.0 Aspartate Amino Transf (AST/SGOT) 32 Alanine Aminotransferase (ALT/SGPT) 43 Alkaline Phosphatase 88 Total Protein 6.1 # Albumin 3.0 #L Globulin 3.10 Albumin/Globulin Ratio 0.96 Free Thyroxine Index 2.92 Thyroxine (T4) 6.3 Triiodothyronine (T3) Uptake 46.4 H Medications Medications Current Medications Lorazepam (Ativan) 0.5 mg Q6H PRN IV ANXIETY; Start 03/19/17 at 13:00 Ondansetron HCl (Zofran Inj) 4 mg Q6H PRN IV NAUSEA AND/OR VOMITING; Start 03/19 at 13:00 Acetaminophen (Tylenol Tab) 650 mg Q6H PRN PO PAIN LEVEL 1-3 OR FEVER; Start at 13:00 Acetaminophen/ Hydrocodone Bitart ([place] (5/325)) 1 tab Q6H PRN PO PAIN LEVEL 4 -6; Start 03/19/17 at 13:00 Morphine Sulfate (morphine) 2 mg Q4H PRN IV PAIN LEVEL 7-10; Start 03/19/17 at 13:00 Magnesium Hydroxide (Milk Of Mag) 30 ml DAILY PRN PO CONSTIPATION; Start at 13:00 Bisacodyl (Dulcolax) 5 mg DAILY PRN PO CONSTIPATION; Start 03/19/17 at 13:00 Famotidine (Pepcid) 20 mg Q12 PO Last administered on 03/20/17 09:30; Admin Dose 20 MG; Start 03/19/17 at 21:00 Apixaban (Eliquis) 5 mg BID PO Last administered on 03/20/17 09:30; Admin Dose 5 MG; Start 03/19/17 at 21:00 Cyanocobalamin (Vitamin B12) 100 mcg DAILY PO Last administered on 03/20/17 09: 31; Admin Dose 100 MCG; Start 03/20/17 at 09:00 Furosemide (Lasix) 20 mg DAILY PO Last administered on 03/20/17 09:30; Admin Dose 20 MG; Start 03/20/17 at 09:00 Salmeterol Xinafoate/ Fluticasone (Advair 250/50 Diskus) 1 inh BID INH Last administered on 03/20/17 09:30; Admin Dose 1 INH; Start 03/19/17 at 21:00 Atorvastatin Calcium (Lipitor) 10 mg DAILY@21 PO Last administered on 03/19/17 20:50; Admin Dose 10 MG; Start 03/19/17 at 21:00 Tiotropium [place] (Spiriva) 1 inh DAILY INH ; Start 03/20/17 at 09:00 Metoprolol Tartrate (Lopressor) 50 mg BID PO Last administered on 03/20/17 09: 31; Admin Dose 50 MG; Start 03/19/17 at 14:00 Chlordiazepoxide (Librium) 25 mg TID PO Last administered on 03/20/17 09:30; Admin Dose 25 MG; Start 03/19/17 at 21:00 Lorazepam (Ativan) 1 mg Q2H PRN IV Anxiety; Start 03/19/17 at 15:30 TINA RED March 20, 2017 09:55
[2017-03-20 10:04] LABS: TOTAL IRON BINDING CAPACITY 238 ug/dl (241-421)
--- NOTE | 2017-03-20 11:33 | CONS ---
Date/Time of Note Date/Time of Note DATE: 03/20/17 TIME: 11:31 Assessment/Plan Assessment/Plan Additional Assessment/Plan Mechanical fall with knee trauma Atrial fibrillation with rapid ventricular rates, improved COPD with active tobacco use Preserved ejection fraction Hypertension Mitral and tricuspid valve regurgitation -Heart rate trend with significant improvement on telemetry. Continue Lopressor and anticoagulation if no contraindication. DC planning. Consultation Date/Type/Reason Admit Date/Time March 19, 2017 at 14:45 Initial Consult Date Type of Consultation: cv 24 HR Interval Summary Free Text/Dictation Shortness of breath has resolved, denies further anxiety. Denies palpitations or chest pain Exam/Review of Systems Vital Signs Vitals Vital Signs Date Time Temp Pulse Resp B/P Pulse Ox O2 Delivery O2 Flow Rate FiO2 03/20/17 08:07 98.0 91 20 122/60 99 03/20/17 02:50 3.0 03/20/17 01:46 Nasal Cannula 03/19/17 09:33 21 Intake and Output 03/19/17 03/19/17 03/20/17 15:00 23:00 07:00 Intake Total 250 ml 800 ml Output Total 300 ml 550 ml Balance -50 ml 250 ml Exam No apparent distress Constitutional: alert, oriented Head: normocephalic Neck: supple Respiratory: other (Coarse breath sounds bilaterally, no wheezing) Cardiovascular: irregular rhythm, other (S1-S2 heard) Gastrointestinal: bowel sounds, non-tender, soft Extremities: other (No edema) Results Result Diagram: 03/20/17 0550 03/20/17 0550 Results 24 hrs Laboratory Tests Test 03/19/17 15:09 03/20/17 05:50 Prothrombin Time 15.6 H Prothrombin Time Ratio 1.2 INR International Normalized Ratio 1.23 Activated Partial Thromboplast Time 34.3 Hemoglobin A1c 5.3 Creatine Kinase 114 Creatine Kinase Index 5.4 Creatinine Kinase MB (Mass) 6.21 H Troponin I < 0.012 0.022 White Blood Count 11.5 H Red Blood Count 3.59 #L Hemoglobin 12.9 #L Hematocrit 37.9 L Mean Corpuscular Volume 105.6 H Mean Corpuscular Hemoglobin 35.9 H Mean Corpuscular Hemoglobin Concent 34.0 Red Cell Distribution Width 15.8 H Platelet Count 178 # Mean Platelet Volume 11.2 H Neutrophils % 88.0 H Lymphocytes % 5.8 L Monocytes % 5.2 Eosinophils % 0.0 Basophils % 0.1 Nucleated Red Blood Cells % 0.0 Neutrophils # 10.1 H Lymphocytes # 0.7 L Monocytes # 0.6 Eosinophils # 0.0 Basophils # 0.0 Nucleated Red Blood Cells # 0.0 Sodium Level 134 L Potassium Level 3.8 Chloride Level 97 Carbon Dioxide Level 27 Anion Gap 14 Blood Urea Nitrogen 24 H Creatinine 0.98 Glucose Level 135 Calcium Level 9.1 Phosphorus Level 3.1 Magnesium Level 2.0 Iron Level 31 L Total Iron Binding Capacity 238 L Percent Iron Saturation 13 L Total Bilirubin 1.0 Direct Bilirubin 0.00 Indirect Bilirubin 1.0 Aspartate Amino Transf (AST/SGOT) 32 Alanine Aminotransferase (ALT/SGPT) 43 Alkaline Phosphatase 88 Total Protein 6.1 # Albumin 3.0 #L Globulin 3.10 Albumin/Globulin Ratio 0.96 Free Thyroxine Index 2.92 Thyroxine (T4) 6.3 Triiodothyronine (T3) Uptake 46.4 H Medications Medications Current Medications Lorazepam (Ativan) 0.5 mg Q6H PRN IV ANXIETY; Start 03/19/17 at 13:00 Ondansetron HCl (Zofran Inj) 4 mg Q6H PRN IV NAUSEA AND/OR VOMITING; Start 03/19 at 13:00 Acetaminophen (Tylenol Tab) 650 mg Q6H PRN PO PAIN LEVEL 1-3 OR FEVER; Start at 13:00 Acetaminophen/ Hydrocodone Bitart ([place] (5/325)) 1 tab Q6H PRN PO PAIN LEVEL 4 -6; Start 03/19/17 at 13:00 Morphine Sulfate (morphine) 2 mg Q4H PRN IV PAIN LEVEL 7-10; Start 03/19/17 at 13:00 Magnesium Hydroxide (Milk Of Mag) 30 ml DAILY PRN PO CONSTIPATION; Start at 13:00 Bisacodyl (Dulcolax) 5 mg DAILY PRN PO CONSTIPATION; Start 03/19/17 at 13:00 Famotidine (Pepcid) 20 mg Q12 PO Last administered on 03/20/17 09:30; Admin Dose 20 MG; Start 03/19/17 at 21:00 Apixaban (Eliquis) 5 mg BID PO Last administered on 03/20/17 09:30; Admin Dose 5 MG; Start 03/19/17 at 21:00 Cyanocobalamin (Vitamin B12) 100 mcg DAILY PO Last administered on 03/20/17 09: 31; Admin Dose 100 MCG; Start 03/20/17 at 09:00 Furosemide (Lasix) 20 mg DAILY PO Last administered on 03/20/17 09:30; Admin Dose 20 MG; Start 03/20/17 at 09:00 Salmeterol Xinafoate/ Fluticasone (Advair 250/50 Diskus) 1 inh BID INH Last administered on 03/20/17 09:30; Admin Dose 1 INH; Start 03/19/17 at 21:00 Atorvastatin Calcium (Lipitor) 10 mg DAILY@21 PO Last administered on 03/19/17 20:50; Admin Dose 10 MG; Start 03/19/17 at 21:00 Tiotropium [place] (Spiriva) 1 inh DAILY INH ; Start 03/20/17 at 09:00 Metoprolol Tartrate (Lopressor) 50 mg BID PO Last administered on 03/20/17 09: 31; Admin Dose 50 MG; Start 03/19/17 at 14:00 Chlordiazepoxide (Librium) 25 mg TID PO Last administered on 03/20/17 09:30; Admin Dose 25 MG; Start 03/19/17 at 21:00 Lorazepam (Ativan) 1 mg Q2H PRN IV Anxiety; Start 03/19/17 at 15:30 Arturo Wseley DO March 20, 2017 11:33
--- NOTE | 2017-03-20 13:24 | RADRPT ---
Echocardiogram Report Patient Name: ZAC COTO Gender: Male Date: 1940 Study Date: 20-Mar-2017 Crane Mechanic: Geremias Goodman RDCS Location: Ref. Physician: FABRICE JAMISON Quality: Adequate Procedures: Transthoracic echocardiogram with complete 2D, M-Mode, and doppler examination. Indications: Evaluate Left Ventricular function. 2D/M Mode Doppler Measurement Value Normal Ranges Measurement Value Normal Ranges LVIDd 2D 2.7 3.5 - 5.6 cm AV Peak William 1.1 m/sec LVIDs 2D 2.7 2.1 - 4.1 cm AV Peak PG 4.7 mmHg LVPWd 2D 1.2 0.6 - 1.1 cm TR Peak William 2.9 m/sec IVSd 2D 1.3 0.6 - 1.1 cm TR Peak PG 33.8 mmHg AoR Diam 2D 2.5 2.0 - 3.7 cm RVSP 49.0 mmHg EDV 2D 26.8 cm3 ESV 2D 19.5 cm3 Findings Left Ventricle: Overall, normal left ventricular systolic function. Not all segments visualized. Normal left ventricular cavity size. Mild concentric left ventricular hypertrophy. Ejection fraction is visually estimated at 55 %. Right Ventricle: Moderate enlargement of right ventricle. Mild right ventricular hypokinesis. Left Atrium: The left atrium is normal in size. Right Atrium: There is mild enlargement of right atrium. Mitral Valve: Mitral valve leaflets appear mildly thickened. Mild mitral annular calcification. Mild to moderate mitral valve regurgitation. Aortic Valve: Aortic cusps appear mildly calcified. Trace aortic valve regurgitation. Tricuspid Valve: Normal appearance of the tricuspid valve. Estimated peak PA systolic pressure 49 mmHg. There is mild tricuspid regurgitation. Pulmonic Valve: Normal pulmonic valve appearance. Pericardium: Normal pericardium with no significant pericardial effusion. Aorta: Normal aortic root. IVC: Dilated IVC without respiratory collapse consistent with elevated right atrial pressure. Conclusions 1.Overall, normal left ventricular systolic function. Not all segments visualized. Normal left ventricular cavity size. Mild concentric left ventricular hypertrophy. Ejection fraction is visually estimated at 55 %. 2.Moderate enlargement of right ventricle. Mild right ventricular hypokinesis. 3.The left atrium is normal in size. 4.There is mild enlargement of right atrium. 5.Mild to moderate mitral valve regurgitation. 6.Estimated peak PA systolic pressure 49 mmHg. There is mild tricuspid regurgitation. 7.Trace aortic valve regurgitation. 8.Normal pericardium with no significant pericardial effusion. Electronically Signed By: Arturo Wesley 20-Mar-2017 13:23:47 -0700 Patient Name: ZAC COTO Study Date: 20-Mar-2017 [id number]
[2017-03-20] MEDS: ATORVASTATIN 10 MG TAB PO SCH (21:04)
[2017-03-21] VITALS (8 sets, daily range): BP systolic 107–136; BP diastolic 54–81; PULSE 79–108; RESP 16–18
[2017-03-21] MEDS: LEVALBUTEROL (NEB) 0.31 MG/3 ML AMP HHN SCH ×3 (01:10→14:00)
[2017-03-21 07:36] LABS: ADD SCAN DIFF NO
[2017-03-21 07:37] LABS: BASOPHILS % 0.1 % (0.0-2.0); EOSINOPHILS # 0.1 10^3/ul (0.0-0.5); EOSINOPHILS % 0.8 % (0.0-7.0); HEMATOCRIT 37.2 % (42.0-52.0); HEMOGLOBIN 12.6 g/dl (14.0-18.0); LYMPHOCYTES # 1.4 10^3/ul (0.8-2.9); MEAN CORPUSCULAR HEMOGLOBIN 36.2 pg (29.0-33.0); MEAN CORPUSCULAR HGB CONC 33.9 g/dl (32.0-37.0); MEAN CORPUSCULAR VOLUME 106.9 fl (82.0-101.0); MEAN PLATELET VOLUME 10.1 fl (7.4-10.4); MONOCYTES % 12.1 % (0.0-11.0); NEUTROPHILS % 70.4 % (39.0-77.0); PLATELET COUNT 204 10^3/UL (140-415); RED BLOOD COUNT 3.48 10^6/ul (4.70-6.10); RED CELL DISTRIBUTION WIDTH 15.8 % (11.5-14.5); WHITE BLOOD COUNT 8.6 10^3/ul (4.8-10.8)
[2017-03-21 08:08] LABS: CALCIUM 9.1 mg/dl (8.4-10.2); CREATININE 1.01 mg/dl (0.61-1.24); POTASSIUM 3.6 mmol/L (3.5-5.1)
[2017-03-21] MEDS: APIXABAN 5 MG TABLET PO SCH (08:42)
[2017-03-21] MEDS: SALMETEROL/FLUTICASONE 250/50 INHA INH SCH (08:42)
[2017-03-21] MEDS: FAMOTIDINE 20 MG TAB PO SCH (08:42)
[2017-03-21] MEDS: TIOTROPIUM 18 MCG CAPSULE INHA DEV INH SCH (08:42)
[2017-03-21] MEDS: FUROSEMIDE 20 MG TAB PO SCH (08:43)
[2017-03-21] MEDS: CYANOCOBALAMIN 100 MCG TAB PO SCH (08:43)
[2017-03-21] MEDS: METOPROLOL 50 MG TAB PO SCH (08:43)
[2017-03-21] MEDS: CHLORDIAZEPOXIDE 25 MG CAP PO SCH ×3 (08:43→12:27)
[2017-03-21] MEDS ORDERED: APIX5TAB PO (09:59)
[2017-03-21] MEDS ORDERED: HYDR-3498 PO (09:59)
[2017-03-21] MEDS ORDERED: ATOR10TA65 PO (09:59)
[2017-03-21] MEDS ORDERED: LAS20 PO (09:59)
[2017-03-21] MEDS ORDERED: ALBU18HF INHALATION (09:59)
[2017-03-21] MEDS ORDERED: METO-429 PO (09:59)
[2017-03-21] MEDS ORDERED: CYAN100 PO (09:59)
[2017-03-21] MEDS ORDERED: TIOT18CA INHALATION (09:59)
[2017-03-21] MEDS ORDERED: ADV25050 INH (09:59)
--- NOTE | 2017-03-21 10:07 | PDOCDIS ---
Discharge Instructions DIAGNOSIS Discharge Diagnosis: 1. afib with rvr 2. mechanical fall 3. essential hypertension 4. copd 5. hy HOME CARE INSTRUCTIONS: Diet Instructions: Low Fat /Cholesterol FOLLOW UP/APPOINTMENTS Appointments 1. Follow up with Dr. Arturo Wesley in one week 2. Follow up with your primary care provider in 1-2 weeks TINA RED March 21, 2017 10:07
--- NOTE | 2017-03-21 17:36 | CONS ---
Date/Time of Note Date/Time of Note DATE: 03/21/17 TIME: 17:33 Assessment/Plan Assessment/Plan Additional Assessment/Plan Mechanical fall with knee trauma Atrial fibrillation with rapid ventricular rates, improved COPD with active tobacco use Preserved ejection fraction Hypertension Mitral and tricuspid valve regurgitation -Heart rate trend overall remains stable. Continue Lopressor and anticoagulation if no contraindication. DC planning. Consultation Date/Type/Reason Admit Date/Time March 19, 2017 at 14:45 Type of Consultation: cv 24 HR Interval Summary Free Text/Dictation Denies shortness of breath, palpitations, dizziness. Feeling much better Exam/Review of Systems Vital Signs Vitals Vital Signs Date Time Temp Pulse Resp B/P Pulse Ox O2 Delivery O2 Flow Rate FiO2 03/21/17 15:53 98.0 108 16 108/74 97 03/21/17 08:19 Nasal Cannula 2.0 03/19/17 09:33 21 Intake and Output 03/20/17 03/20/17 03/21/17 15:00 23:00 07:00 Intake Total 720 ml 740 ml Output Total 850 ml 1075 ml Balance -130 ml -335 ml Exam No apparent distress Constitutional: alert, oriented Head: normocephalic Respiratory: other (Coarse breath sounds bilaterally, no wheezing) Cardiovascular: irregular rhythm, other (S1-S2 heard) Gastrointestinal: bowel sounds, non-tender, soft Extremities: edema (Trace) Results Result Diagram: 03/21/17 0712 03/21/17 0712 Results 24 hrs Laboratory Tests Test 03/21/17 07:12 White Blood Count 8.6 # Red Blood Count 3.48 L Hemoglobin 12.6 L Hematocrit 37.2 L Mean Corpuscular Volume 106.9 H Mean Corpuscular Hemoglobin 36.2 H Mean Corpuscular Hemoglobin Concent 33.9 Red Cell Distribution Width 15.8 H Platelet Count 204 Mean Platelet Volume 10.1 Neutrophils % 70.4 Lymphocytes % 16.0 Monocytes % 12.1 H Eosinophils % 0.8 Basophils % 0.1 Nucleated Red Blood Cells % 0.0 Neutrophils # 6.0 Lymphocytes # 1.4 Monocytes # 1.0 H Eosinophils # 0.1 Basophils # 0.0 Nucleated Red Blood Cells # 0.0 Sodium Level 134 L Potassium Level 3.6 Chloride Level 102 Carbon Dioxide Level 29 Anion Gap 7 L Blood Urea Nitrogen 31 H Creatinine 1.01 Glucose Level 105 Calcium Level 9.1 Maryjane,Arturo N. DO March 21, 2017 17:36
== END 2017-03-21 17:25 | disposition home health service (06) | DRG 191 ==
LOC: E/R 08:47 → MS4 11:44 → OBSVTOIN 14:45 → MS4 15:04
PROVIDERS: ADMIT Family Medicine; ATTEND Family Medicine
DX: J44.1 Chronic obstructive pulmonary disease with (acute) exacerbation (principal); J98.11 Atelectasis; I48.91 Unspecified atrial fibrillation; I34.0 Nonrheumatic mitral (valve) insufficiency; E83.42 Hypomagnesemia; Z72.0 Tobacco use; S80.02XA Contusion of left knee, initial encounter; I10 Essential (primary) hypertension; I36.1 Nonrheumatic tricuspid (valve) insufficiency; F41.9 Anxiety disorder, unspecified; W01.0XXA Fall on same level from slipping, tripping and stumbling without subsequent striking against object, initial encounter; Z79.02 Long term (current) use of antithrombotics/antiplatelets; M11.262 Other chondrocalcinosis, left knee; M81.0 Age-related osteoporosis without current pathological fracture
CPT/HCPCS: 71010; 73564; 80048; 80053; 82550; 82553; 83036; 83540; 83735; 84100; 84436; 84443; 84479; 84484; 85025; 85610; 85730; 93005; 93306; 94640; 94664; 96374; 96375; 96376; G0378; J2930; J3420

== ENCOUNTER 2017-11-17 07:20 | Inpatient (IN) | END 2017-11-24 16:45 | DRG 190 ==

== ENCOUNTER 2018-02-07 07:10 | Emergency (ER) | END 2018-02-07 14:36 ==

== ENCOUNTER 2018-08-11 12:47 | Inpatient (IN) | END 2018-08-20 18:45 | DRG 871 ==

== ENCOUNTER 2018-08-24 10:04 | Day surgery (SDC) | END 2018-08-24 13:58 | disposition home or self-care (01) ==

== ENCOUNTER 2018-09-01 18:16 | Day surgery (SDC) | END 2018-09-01 21:42 ==

== ENCOUNTER 2018-09-10 11:39 | Inpatient (IN) | END 2018-09-11 18:39 | disposition EXP | DRG 314 ==